=== PATIENT | male | born 1935 | race Hispanic/Latino ===

== ENCOUNTER 2016-09-14 11:36 | Outpatient (CLI) | payer MEDICARE, OTHER ==
--- NOTE | 2016-09-14 12:50 | XRay Report ---
CHEST TWO VIEWS: 09/14/16 11:36:00 CLINICAL: Polymyalgia rheumatica. COMPARISON: None FINDINGS: Normal heart and pulmonary vasculature.Mild bilateral apical pleural thickening. The lungs are normally expanded and clear.The bones and soft tissues are unremarkable. IMPRESSION: No acute cardiopulmonary process. Mild bilateral chronic apical pleural scarring.
== END 2016-09-14 11:37 | disposition home or self-care (01) ==
LOC: SPVIMAG 11:36
PROVIDERS: ATTEND Specialist
DX: M35.3 Polymyalgia rheumatica (principal); R79.0 Abnormal level of blood mineral; R76.8 Other specified abnormal immunological findings in serum; J92.9 Pleural plaque without asbestos; I10 Essential (primary) hypertension; E78.00 Pure hypercholesterolemia, unspecified; F41.9 Anxiety disorder, unspecified; Z87.891 Personal history of nicotine dependence
CPT/HCPCS: 71020

== ENCOUNTER 2017-03-20 13:41 | Outpatient (CLI) | payer MEDICARE, OTHER ==
--- NOTE | 2017-03-20 15:06 | XRay Report ---
Right shoulder: Pain. Subarticular spurs are present involving both glenoid and humerus. The articular surfaces are smooth and the joint space appears preserved. The bones are well-mineralized. No soft tissue findings. Compare to his prior exam in November 2012 the spurs are new with no other changes. Impression: Degenerative articular spurs developing since 2012.
== END 2017-03-20 13:42 | disposition home or self-care (01) ==
LOC: SPVIMAG 13:41
PROVIDERS: ATTEND Specialist
DX: M35.3 Polymyalgia rheumatica (principal); M25.811 Other specified joint disorders, right shoulder; M25.511 Pain in right shoulder

== ENCOUNTER 2017-09-25 07:57 | Outpatient (CLI) | payer MEDICARE, OTHER ==
--- NOTE | 2017-09-25 11:27 | Cat Scan Report ---
CT CHEST WITH CONTRAST: HISTORY: Diverticulosis. COMPARISON: none. TECHNIQUE: Helical CT in 1.25mm intervals following IV contrast. Sagittal and coronal reformatted images. FINDINGS: Thyroid gland: Normal. Tracheobronchial tree: Normal. Esophagus: Normal. Heart: Normal. Pericardium: Normal. Mediastinum: Mild aortic calcifications are noted. No evidence for aneurysm or dissection. No mediastinal mass or adenopathy. Lung Benson: Perhaps minimal centrilobular emphysematous changes are identified in the upper lobes. Otherwise, the lungs are clear. No advanced parenchymal disease, nodule or infiltrate. Pleural Spaces: Normal. Musculoskeletal: Mild thoracic spondylosis. No fracture or suspicious bony lesion. IMPRESSION: Minimal emphysematous changes in the upper lobes. Mild aortic calcifications. Otherwise, unremarkable CT chest with contrast.
--- NOTE | 2017-09-25 11:35 | Cat Scan Report ---
CT ABDOMEN PELVIS WITH CONTRAST: HISTORY: Diverticulosis. COMPARISON: none. TECHNIQUE: Helical CT in 1.25mm intervals following IV contrast. Sagittal and coronal reconstructions. FINDINGS: Liver: Normal. Biliary system: Normal. Pancreas: Normal. Spleen: Normal. Kidneys/ureters/bladder: The kidneys are normal size, contour and position. A 2.7 cm exophytic cyst is noted from the superior left kidney. No evidence for mass, calculus or hydronephrosis. The ureters and bladder are unremarkable. Adrenal glands: Normal. Aorta: There is a large abdominal aortic aneurysm measuring up to 5.7 cm in maximum diameter. There is moderate mural thrombus within the aneurysm sac. The aneurysm extends from the aortic hiatus to just below the renal arteries. The renal arteries originate from the aneurysm sac but appear patent and without stenosis. Severe stenosis is suspected at the origin of the celiac axis with narrowing estimated at 90% or greater. There is poststenotic dilatation of the celiac trunk. The SMA is normal caliber. The IZZY is occluded. The common iliac arteries are widely patent. There is fusiform dilatation of the distal left common iliac artery up to 2.4 cm. The external iliac arteries are widely patent. The origins of the bilateral internal iliac arteries appear highly stenotic or occluded. Intestines: There are a few scattered diverticula in the distal descending colon. There are too many to count diverticula in the sigmoid colon. No evidence for focal inflammation, mass or obstruction. The remaining bowel loops are unremarkable. Appendix: Appendectomy has suspected. Ascites: None. Adenopathy: None. Musculoskeletal: The bony structures are mildly osteopenic. Previous right hip replacement changes are noted. No evidence for fracture or suspicious bony lesion. IMPRESSION: Diverticulosis as described. No evidence for diverticulitis. Abdominal aortic aneurysm measuring up to 5.7 cm which encompasses the renal arteries. 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
== END 2017-09-25 07:58 | disposition home or self-care (01) ==
LOC: CT 07:57
PROVIDERS: ATTEND Internal Medicine Gastroenterology
DX: K57.90 Diverticulosis of intestine, part unspecified, without perforation or abscess without bleeding (principal); K55.069 Acute infarction of intestine, part and extent unspecified; I71.4 Abdominal aortic aneurysm, without rupture; I10 Essential (primary) hypertension; E78.00 Pure hypercholesterolemia, unspecified; F41.9 Anxiety disorder, unspecified; I73.9 Peripheral vascular disease, unspecified; Z87.891 Personal history of nicotine dependence
CPT/HCPCS: 71260; 74177; Q9967

== ENCOUNTER 2018-04-16 11:09 | Outpatient (CLI) | payer MEDICARE, OTHER ==
--- NOTE | 2018-04-16 11:46 | XRay Report ---
XRAY LUMBAR SPINE THREE VIEWS: 04/16/18 11:09:00 CLINICAL: Back pain. FINDINGS: Mild upper lumbar dextroscoliosis centered at L2. Normal vertebral body height and alignment. Mild disc space narrowing at anterior posterior osteophytes at L1-2. Small anterior-posterior osteophytes at L2-3 and smaller osteophytes at L3-4 and L4-5. Large right lateral osteophytes at L1-2 and L2-3. The pedicles are intact. No fracture. Moderate level facet sclerosis and enlargement. Extensive left para midline surgical clips and moderate calcification of the abdominal aorta. A right replacement. IMPRESSION: Mild scoliosis and moderate multilevel degenerative disc disease. Multilevel facet joint disease.
== END 2018-04-16 11:10 | disposition home or self-care (01) ==
LOC: SPVIMAG 11:09
PROVIDERS: ATTEND Specialist
DX: M41.86 Other forms of scoliosis, lumbar region (principal); M48.061 Spinal stenosis, lumbar region without neurogenic claudication; M51.37 Other intervertebral disc degeneration, lumbosacral region; M25.78 Osteophyte, vertebrae; M35.3 Polymyalgia rheumatica; R94.4 Abnormal results of kidney function studies; R53.83 Other fatigue; E78.00 Pure hypercholesterolemia, unspecified; M19.90 Unspecified osteoarthritis, unspecified site; Z79.899 Other long term (current) drug therapy; Z90.49 Acquired absence of other specified parts of digestive tract
CPT/HCPCS: 72100

== ENCOUNTER 2018-08-28 10:00 | Outpatient (CLI) | payer MEDICARE, OTHER ==
--- NOTE | 2018-08-29 08:02 | Magnetic Resonance Report ---
MRI LUMBAR SPINE WITHOUT CONTRAST HISTORY: Degenerative lumbar disc disease, lower back pain. TECHNIQUE: axial T1, T2. sagittal T1,T2, STIR. COMPARISON: MR lumbar spine dated 01/27/09. FINDINGS: The conus terminates at L1. No signal abnormality or mass. The cauda equina is within normal limits. There is mild dextrocurvature of the lumbar spine estimated at 8 degrees with apex near L2-3 level. This appears to be a new finding since the previous MR. There is normal height and alignment of the lumbar vertebra otherwise. Bone marrow signal is within normal limits. No fracture or suspicious bony lesion. There is diffuse disc desiccation and mild disc space narrowing throughout the lumbar region. There is diffuse moderate hypertrophic facet arthropathy throughout the lumbar spine. L1-2: A mild concentric bulging disc is identified. Mild facet arthropathy and hypertrophy of the ligamentum flavum. No significant central canal or neural foraminal narrowing. L2-3: A mild concentric bulging disc is identified. Mild facet arthropathy and hypertrophy of the ligamentum flavum. No significant central canal stenosis. Bilateral neural foraminal narrowing is estimated at 25%. L3-4: A moderate circumferential bulging disc is identified. Moderate facet arthropathy and hypertrophy of the ligamentum flavum. Mild to moderate central canal narrowing has developed at this level measuring 7 mm in AP dimension. Bilateral neural foraminal narrowing is estimated at 50% or greater. L4-5: A mild diffuse posterior bulging disc is identified. A focal midline annular tear is identified. No significant disc protrusion. Mild facet arthropathy and hypertrophy of the ligamentum flavum. Mild bilateral neural foraminal narrowing is estimated at 50%. The right side is slightly more affected. L5-S1: No significant abnormality with the disc. Mild facet arthropathy. IMPRESSION: Moderate multilevel lumbar spondylosis is identified as outlined above. L3-4 appears to be the most affected level where there is mild to moderate central canal narrowing and bilateral neural foraminal narrowing. Please see above. Mild dextrocurvature to the lumbar spine has developed. Progression of degenerative disease is appreciated since 2009 exam.
== END 2018-08-28 23:59 | disposition home or self-care (01) ==
LOC: SPVIMAG 10:00
PROVIDERS: ATTEND Internal Medicine
DX: M51.36 Other intervertebral disc degeneration, lumbar region (principal)
CPT/HCPCS: 72148

== ENCOUNTER 2019-06-29 08:31 | Outpatient (CLI) | payer MEDICARE, OTHER ==
--- NOTE | 2019-06-29 09:49 | Fluoroscopy Report ---
Barium swallow Indication: DYSPHAGIA R13.10. Technique: Single and double contrast barium technique utilized to evaluate the esophagus. Findings: To begin the exam, swallowing was evaluated in the lateral position under direct fluorosco py. Swallowing was normal. No mucosal irregularity, mass, mass effect, or critical stenosis. There were no abnormal tertiary c ontractions as seen with dysmotility. There was a very small hiatal hernia and trace gastroesophageal reflux reaching the distal esophagus. A barium tablet freely passed distally into the stomach. Impression: Very small hiatal hernia and trace reflux. Fluoroscopic time: 1.6 minutes Number of fluoroscopic images: 21 Signer Name: Juan Walker MD Signed: 06/29/2019 9:45 AM Workstation Name: [id number]
== END 2019-06-29 08:32 | disposition home or self-care (01) ==
LOC: FLUORO 08:31
PROVIDERS: ATTEND Internal Medicine Gastroenterology
DX: K44.9 Diaphragmatic hernia without obstruction or gangrene (principal)
CPT/HCPCS: 74220